=== PATIENT | male | born 1940 | race Caucasian/White ===

== ENCOUNTER 2018-09-22 05:53 | Observation (INO) | payer MEDICARE, OTHER ==
--- NOTE | 2018-09-22 06:12 | ER Document Report ---
ED General - General Stated Complaint: RESTLESS BEHAVIOR Time Seen by Provider: 09/22/18 06:05 Primary Care Provider: ANA CHIRINOS [NO LOCAL MD] - Follow up as needed TRAVEL OUTSIDE OF THE [place] 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 She has had multiple medication changing on his chronic pain medication. They are concerned he is going through withdrawal. Patient had previously been on 60 mg MS Contin twice a day was cut down to 30 mg MS Contin on . Increasing agitation per . Eyes fever chills or any other acute change. Patient given Ativan prior to arrival very sedate and comfortable during my interview. Patient is at his baseline oxygen demand of 2 L nasal cannula. Patient is a non-reliable review of systems. Information gained from and hospice nurse bedside - Related Data Allergies/Adverse Reactions: No Known Allergies Allergy (Unverified 09/22/18 06:18) Past Medical History - Social History Smoking Status: Unknown if Ever Smoked Family History: None Review of Systems - Review of Systems -: Yes ROS unobtainable due to patient's medical condition Physical Exam - Vital signs Vitals: Pulse Ox 97 09/22/18 05:56 - Notes Notes: PHYSICAL EXAMINATION: GENERAL: Well-appearing, well-nourished and in no acute distress. HEAD: Atraumatic, normocephalic. EYES: Pupils equal round and reactive to light, extraocular movements intact, sclera anicteric, conjunctiva are normal. ENT: nares patent, oropharynx clear without exudates. Moist mucous membranes. NECK: Normal range of motion, supple without lymphadenopathy LUNGS: Breath sounds clear to auscultation bilaterally and equal. No wheezes rales or rhonchi. HEART: Regular rate and rhythm without murmurs ABDOMEN: Soft, nontender, normoactive bowel sounds. No guarding, no rebound. No masses appreciated. EXTREMITIES: Normal range of motion, no pitting or edema. No cyanosis. NEUROLOGICAL: Cranial nerves grossly intact. Normal speech, normal gait. Normal sensory and motor exams. PSYCH: Normal mood, normal affect. SKIN: Warm, Dry, normal turgor, no rashes or lesions noted. Course - Re-evaluation Re-evalutation: 05/13/19 06:19 78-year-old cachectic appearing male presents in no acute distress stable vitals within normal limits 09/22/18 07:17 Critically ill-appearing 78-year-old male end-stage PD. Presents with increasing agitation. Patient's extensive lab work-up shows no organic cause for this. Patient will be admitted by hospitalist, consult oncology speak to Dr. Nichols, Dr. Joseph to admit - Vital Signs Vital signs: Temp Pulse Resp BP Pulse Ox 98.5 F 64 12 173/88 H 100 09/22/18 06:13 09/22/18 06:13 09/22/18 06:13 09/22/18 06:13 09/22/18 07:00 - Laboratory Result Diagrams: 09/22/18 06:35 09/22/18 06:35 Laboratory results interpreted by me: 09/22/18 09/22/18 06:35 06:35 RBC 3.68 L Hgb 10.8 L Hct 32.8 L RDW 14.9 H Lymphocytes % 12.0 L Monocytes % 14.1 H Carbon Dioxide 34 H - EKG Interpretation by Ia EKG shows normal: Sinus rhythm - Normal sinus rhythm, 70 bpm, no ST elevations or depression, normal QRS, normla QTC Discharge - Discharge Clinical Impression: Agitation Condition: Stable Disposition: ADMITTED INPATIENT Admitting Provider: Giuliana (Hospitalist) Unit Admitted: Medical Floor Referrals: LOCAL,NO [NO LOCAL MD] - Follow up as needed
[2018-09-22 06:50] LABS: ABSOLUTE BASOPHILS # (AUTO) 0.1 10^3/uL (0.0-0.2); ABSOLUTE EOSINOPHILS # (AUTO) 0.2 10^3/uL (0.0-0.6); ABSOLUTE LYMPHOCYTES (AUTO) 0.9 10^3/uL (0.5-4.7); BASOPHILS % (AUTO) 0.8 % (0-2); EOSINOPHILS % (AUTO) 2.2 % (0-6); HEMATOCRIT 32.8 % (37.9-51.0); HEMOGLOBIN 10.8 g/dL (13.5-17.0); MEAN CORPUSCULAR HEMOGLOBIN 29.4 pg (27.0-33.4); MEAN CORPUSCULAR VOLUME 89 fl (80-97); MONOCYTES % (AUTO) 14.1 % (3-13); PLATELET COUNT 340 10^3/uL (150-450); RED BLOOD COUNT 3.68 10^6/uL (4.35-5.55); RED CELL DISTRIBUTION WIDTH 14.9 % (11.5-14.0); SEGMENTED NEUTROPHILS % (AUTO) 70.9 % (42-78); TOTAL CELLS COUNTED % (AUTO) 100 %; WHITE BLOOD COUNT 7.1 10^3/uL (4.0-10.5)
--- NOTE | 2018-09-22 07:07 | RADIOLOGY REPORT (SQ) ---
EXAM DESCRIPTION: XR CHEST 1 VIEW COMPLETED DATE/TME: 09/22/2018 06:12 CLINICAL HISTORY: 78 years Male, sob COMPARISON: None. NUMBER OF VIEWS/TECHNIQUE: 1/AP FINDINGS: Adequate lung volume, large bullous disease of the right lower lung, prominent interstitium, mild rightward cardiac shift-rotation, and intact bony thorax.Normal cardiac silhouette size. IMPRESSION: No acute cardiopulmonary findings. Bullous disease.
[2018-09-22 07:11] LABS: ANION GAP 5 (5-19); BLOOD UREA NITROGEN 18 mg/dL (7-20); CALCIUM 9.4 mg/dL (8.4-10.2); CARBON DIOXIDE 34 mmol/L (22-30); CHLORIDE 103 mmol/L (98-107); GLUCOSE 75 mg/dL (75-110); SODIUM 141.6 mmol/L (137-145)
[2018-09-22] MEDS ORDERED: HALOPERIDOL LACTATE INJ 5 MG/1 ML VIAL IV PRN (07:21)
[2018-09-22] MEDS ORDERED: IPRATROPIUM/ALBUTEROL 0.5-2.5 MG/3 ML AMPUL NEB PRN (07:56)
[2018-09-22] MEDS ORDERED: OXYCODONE-ACETAMINOPHEN 5-325 MG TABLET PO PRN (07:56)
[2018-09-22] MEDS ORDERED: ONDANSETRON HCL INJ/PF 4 MG/2 ML SDV IV PRN (07:56)
[2018-09-22] MEDS ORDERED: MAGNESIUM HYDROXIDE SUSP 30 ML UDCUP PO PRN (07:56)
--- NOTE | 2018-09-22 07:59 | EKG REPORT ---
SEVERITY:- ABNORMAL ECG - SINUS RHYTHM WITH PACS NONSPECIFIC ST-T CHANGES LATERAL LEADS. : Confirmed by: Michael Rivero MD 22-Sep-2018 07:58:20
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
[2018-09-22] MEDS: LORAZEPAM INJ 2 MG/1 ML VIAL IV PRN ×3 (08:38→18:03)
[2018-09-22] MEDS ORDERED: ENOXAPARIN SODIUM INJ 40 MG/0.4 ML DISP.SYRIN SUBCUT SCH (10:00)
[2018-09-22 12:01] VITALS: BP 195/72
[2018-09-22] MEDS: MORPHINE SULFATE SR 30 MG TABLET PO SCH ×2 (12:47→21:01)
[2018-09-22] MEDS: FAMOTIDINE 20 MG TABLET PO SCH ×2 (12:47→21:01)
[2018-09-22] MEDS: DOCUSATE SODIUM 100 MG CAPSULE PO SCH ×2 (12:47→16:59)
[2018-09-22] MEDS: OLANZAPINE 5 MG TABLET PO SCH ×2 (12:48→21:01)
[2018-09-22] MEDS: HALOPERIDOL LACTATE INJ 5 MG/1 ML VIAL IV PRN (18:00)
[2018-09-22] MEDS ORDERED: MORPHINE SULFATE 10 MG/ML INJ IV PRN (18:58)
--- NOTE | 2018-09-23 07:49 | PDOC PROGRESS REPORT ---
Subjective Progress Note for:: 09/23/18 Subjective:: Patient states that he is very sleepy today. No complaints otherwise. Nurses report that he was very restless all day, but after Colindres catheter was placed and >800cc were drained, that patient has been much more comfortable. He has not eaten anything. He was too sleepy to take his regular PO meds. Reason For Visit: ACUTE ENCEPHALOPATHY Physical Exam Vital Signs: Temp Pulse Resp BP Pulse Ox 97.6 F 79 20 195/72 H 97 09/22/18 11:58 09/22/18 11:58 09/22/18 11:58 09/22/18 11:58 09/22/18 11:58 Intake & Output 09/22/18 09/23/18 09/24/18 06:59 06:59 06:59 Weight 50.8 kg 46.7 kg General appearance: PRESENT: no acute distress Respiratory exam: PRESENT: clear to auscultation ana Cardiovascular exam: PRESENT: RRR Neurological exam: PRESENT: awake. ABSENT: oriented to place, oriented to time, oriented to situation Focused psych exam: PRESENT: delusional Skin exam: PRESENT: normal color Results Laboratory Results: 09/22/18 06:35 09/22/18 06:35 09/22/18 06:35 Troponin I 0.037 Impressions: Chest X-Ray 09/22/18 06:12 IMPRESSION: No acute cardiopulmonary findings. Bullous disease. Assessment & Plan - Diagnosis (1) Agitation Is this a current diagnosis for this admission?: Yes Plan: Improved with Colindres Cath, but still requiring IV meds at times. He remains delusional and is still quite strong and combative at times. (2) End-stage chronic respiratory failure Is this a current diagnosis for this admission?: Yes Plan: Patient remains Comfort measures only. Will try to transition to inpatient Hospice today or tomorrow, if family agrees.
[2018-09-23] MEDS: MORPHINE SULFATE SR 30 MG TABLET PO SCH (09:23)
[2018-09-23] MEDS: LORAZEPAM INJ 2 MG/1 ML VIAL IV PRN ×3 (09:24→19:49)
[2018-09-23] MEDS: FAMOTIDINE 20 MG TABLET PO SCH (09:29)
[2018-09-23] MEDS: DOCUSATE SODIUM 100 MG CAPSULE PO SCH ×2 (09:29→17:42)
[2018-09-23] MEDS: OLANZAPINE 5 MG TABLET PO SCH (09:29)
--- NOTE | 2018-09-23 15:48 | PDOC TRANSFER SUMMARY ---
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 Now on comfort measures. (2) Agitation Is this a current diagnosis for this admission?: Yes Summary: His family thinks possibly some withdrawal as his chronic pain medication was tapered because it was thought that what he had originally been on was over sedating. Controlled now on his current regimen which includes Zyprexa and as needed Haldol. (3) End-stage chronic respiratory failure Is this a current diagnosis for this admission?: Yes Summary: Has been stable on his usual O2 per nasal cannula - Additional Information Resuscitation Status: Do Not Resuscitate Discharge Diet: As Tolerated Discharge Activity: Bedrest Home Medications: Haloperidol Lactate [Haldol 5 mg/ml Inj 1 ml Vial] 5 mg IV Q4HP PRN vial 09/23/18 Ipratropium/Albuterol Sulfate [Duoneb 3 ml Ampul] 3 ml NEB RTQ4HP PRN vial.neb 09/23/18 Lorazepam [Ativan Inj 2 mg/1 ml Vial] 2 mg IV Q2HP PRN vial 09/23/18 Morphine Sulfate [Ms-Contin Sr 30 mg Tablet] 60 mg PO Q12 tablet.sa 09/23/18 Olanzapine [Zyprexa 5 mg Tablet] 10 mg PO Q12 tablet 09/23/18 History of Present Illness Admission Date/PCP: 09/22/18 08:21 MANUELA FREEMAN MD History of Present Illness: CHARLI VELÁSQUEZ is a 78 year old male with 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 She has had multiple medication changing on his chronic pain medication. They are concerned he is going through withdrawal. Patient had previously been on 60 mg MS Contin twice a day was cut down to 30 mg MS Contin on . Increasing agitation per . Eyes fever chills or any other acute change. Patient given Ativan prior to arrival very sedate and comfortable during my interview. Patient is at his baseline oxygen demand of 2 L nasal cannula. Patient is a non-reliable review of systems. Information gained from and hospice nurse bedside Hospital Course Hospital Course: He was given his pain medications and Zyprexa was added along with some as needed Haldol. He intermittently wakes up and starts trying to get out of bed but is much more easily redirected now. His family has been taking care of him at home but he is now no longer manageable for them. Hospice placement was sought. Dr. Freeman was consulted in her role as medical delivery technician of a local hospice agency. She made medication recommendations which have done a pretty good job of controlling his symptoms. Placement was obtained in a hospice facility and the patient will be transferred there this evening in stable condition. Physical Exam Vital Signs: Temp Pulse Resp BP Pulse Ox 97.6 F 79 20 195/72 H 97 09/22/18 11:58 09/22/18 11:58 09/22/18 11:58 09/22/18 11:58 09/22/18 11:58 Intake & Output 09/22/18 09/23/18 09/24/18 06:59 06:59 06:59 Weight 50.8 kg 46.7 kg General appearance: PRESENT: no acute distress, disheveled Head exam: PRESENT: atraumatic, normocephalic Eye exam: ABSENT: conjunctival injection, scleral icterus Ear exam: PRESENT: normal external ear exam Mouth exam: PRESENT: dry mucosa Respiratory exam: PRESENT: unlabored. ABSENT: accessory muscle use, prolonged expiratory phas, tachypnea Extremities exam: ABSENT: clubbing, pedal edema Musculoskeletal exam: PRESENT: normal inspection. ABSENT: deformity Neurological exam: ABSENT: alert, awake Results Laboratory Results: 09/22/18 06:35 09/22/18 06:35 09/22/18 06:35 Troponin I 0.037 Impressions: Chest X-Ray 09/22/18 06:12 IMPRESSION: No acute cardiopulmonary findings. Bullous disease. Transfer Plan - Time Spent with Patient Time spent with patient: Less than 30 Minutes Qualifiers - * PATIENT BEING DISCHARGED WITH ANY OF THE FOLLOWING DIAGNOSIS: No
[2018-09-23] MEDS: HALOPERIDOL LACTATE INJ 5 MG/1 ML VIAL IV PRN (19:49)
--- NOTE | 2018-10-01 12:02 | PDOC H&P ---
History of Present Illness Admission Date/PCP: MANUELA MARRERO MD History of Present Illness: CHARLI VELÁSQUEZ is a 78 year old male patient brought with chief complaint of agitation. 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 His states he has multiple medication changing all his chronic pain medications. They are concerned that he is going to through withdrawal. Patient had previously been on 60 mg of MS Contin twice a day was cut down to 30 mg MS Contin on increasing agitation per his . When I see the patient is lying supine. He is awake alert is not in distress. He is also saturation is about 97%. His blood work is unremarkable except indeterminate troponin. Dr. Yanez is working on the case that is to facilitate his transition from home to inpatient hospice. Past Medical History Pulmonary Medical History: Reports: Chronic Obstructive Pulmonary Disease (COPD) Social History Smoking Status: Former Smoker - Advance Directive Resuscitation Status: Do Not Resuscitate Family History Family History: None, Reviewed & Not Pertinent Parental Family History Reviewed: Yes Children Family History Reviewed: Yes Sibling(s) Family History Reviewed.: Yes Medication/Allergy Allergies/Adverse Reactions: No Known Allergies Allergy (Unverified 09/22/18 06:18) Review of Systems ROS unobtainable: Due to mental status Physical Exam Vital Signs: Temp Pulse Resp BP Pulse Ox 98.5 F 64 12 173/88 H 100 09/22/18 06:13 09/22/18 06:13 09/22/18 06:13 09/22/18 06:13 09/22/18 07:00 Intake & Output 09/21/18 09/22/18 09/23/18 06:59 06:59 06:59 Weight 50.8 kg General appearance: PRESENT: mild distress Head exam: PRESENT: atraumatic Eye exam: PRESENT: conjunctiva pink Neck exam: ABSENT: carotid bruit, JVD, lymphadenopathy, thyromegaly Respiratory exam: PRESENT: wheezes Cardiovascular exam: PRESENT: RRR. ABSENT: diastolic murmur, rubs, systolic murmur Neurological exam: PRESENT: alert, altered, awake Results Laboratory Results: 09/22/18 06:35 09/22/18 06:35 09/22/18 09/22/18 06:35 06:35 WBC 7.1 RBC 3.68 L Hgb 10.8 L Hct 32.8 L MCV 89 MCH 29.4 MCHC 33.0 RDW 14.9 H Plt Count 340 Seg Neutrophils % 70.9 Lymphocytes % 12.0 L Monocytes % 14.1 H Eosinophils % 2.2 Basophils % 0.8 Absolute Neutrophils 5.0 Absolute Lymphocytes 0.9 Absolute Monocytes 1.0 Absolute Eosinophils 0.2 Absolute Basophils 0.1 Sodium 141.6 Potassium 4.0 Chloride 103 Carbon Dioxide 34 H Anion Gap 5 BUN 18 Creatinine 0.62 Est GFR ( Amer) > 60 Est GFR (Non-Af Amer) > 60 Glucose 75 Calcium 9.4 09/22/18 06:35 Troponin I 0.037 Impressions: Chest X-Ray 09/22/18 06:12 IMPRESSION: No acute cardiopulmonary findings. Bullous disease. Assessment and Plan - Diagnosis (1) Acute encephalopathy Is this a current diagnosis for this admission?: Yes Plan: Possibly metabolic. We will put him on as needed Ativan and Haldol. (2) End-stage chronic respiratory failure Is this a current diagnosis for this admission?: Yes Plan: Keep on supplemental oxygen and PRN bronchodilators.
== END 2018-09-23 20:00 | disposition hospice, inpatient (51) ==
LOC: ER 05:53 → INTOOBSV 08:21 → EH 08:21 → 4S 11:15
PROVIDERS: ADMIT Internal Medicine; ATTEND Internal Medicine
DX: G93.40 Encephalopathy, unspecified (principal); R45.1 Restlessness and agitation; J96.10 Chronic respiratory failure, unspecified whether with hypoxia or hypercapnia; J44.9 Chronic obstructive pulmonary disease, unspecified; G89.29 Other chronic pain; R53.83 Other fatigue; Z51.5 Encounter for palliative care; Z99.81 Dependence on supplemental oxygen; Z66 Do not resuscitate; Z79.899 Other long term (current) drug therapy; F29 Unspecified psychosis not due to a substance or known physiological condition; Z87.891 Personal history of nicotine dependence
CPT/HCPCS: 93005; 99285; 96374; 36415; 82962; 85025; 80048; 84484; 71045; 93010; G0378 ×3; J1630 ×2; J2270; J2060 ×2